=== PATIENT | female | born 1955 | race Caucasian/White ===

== ENCOUNTER 2019-08-16 19:55 | Emergency (ER) | payer MEDICARE ==
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
[2019-08-16] MEDS ORDERED: MOTRIN 600 MG ONE (21:00)
[2019-08-16] MEDS ORDERED: Cyclobenzaprine 10 MG ONE (21:00)
[2019-08-16] MEDS: Cyclobenzaprine 10 MG PO ONE (21:20)
[2019-08-16] MEDS: MOTRIN 600 MG PO ONE (21:21)
[2019-08-16 22:26] LABS: Appearance CLEAR (CLEAR); Bilirubin NEGATIVE (NEGATIVE); Blood NEGATIVE Ery/ul (0-5); Glucose NEGATIVE (NEGATIVE); Ketones NEGATIVE (NEGATIVE); Leukocyte Esterase SMALL (NEGATIVE); Nitrite NEGATIVE (NEGATIVE); Protein,Urine Dip NEGATIVE (Negative); Specific Gravity 1.005 (1.005-1.025); Urobilinogen NEGATIVE mg/dL (0-1); WBC 51-100 /HPF (0-5)
[2019-08-16 22:27] LABS: Bacteria NONE SEEN /HPF (NEGATIVE); Epithelial Cells FEW /HPF (FEW)
[2019-08-16 23:04] VITALS: BP 125/84; PULSE 66
[2019-08-17 02:00] VITALS: O2SAT 95
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
== END 2019-08-16 23:26 | disposition home or self-care (01) ==
LOC: ED 19:55
DX: M54.5 Low back pain (principal); V87.7XXA Person injured in collision between other specified motor vehicles (traffic), initial encounter; N30.00 Acute cystitis without hematuria; S30.0XXA Contusion of lower back and pelvis, initial encounter; I10 Essential (primary) hypertension
CPT/HCPCS: 72072; 72110; 81001; 87086; 99284; A9270-GY

== ENCOUNTER 2020-03-17 23:00 | Emergency (ER) | payer MEDICARE ==
--- NOTE | 2020-03-17 23:11 | ERPHSYRPT ---
- History of Present Illness Time Seen by Provider: 03/17/20 23:05 Source: patient Exam Limitations: no limitations Physician History: This is a 64-year-old white female who is not on any anticoagulation therapy, and presents to the emergency department approximately 45 minutes after suffering a skin injury to the medial aspect of her right ankle. Patient states that she had glass door propped up. The glass door had slid down and when she walked past it she suffered a scratch to the medial aspect of her right ankle. There was bleeding present. She was not sure how deep or how large the cut was and felt that she should come into the emergency department for evaluation and management Timing/Duration: today Quality: painful Severity: mild Location: extremities (Right ankle medial aspect) Associated Symptoms: denies symptoms Allergies/Adverse Reactions: levofloxacin [From Levaquin] Allergy (Intermediate, Verified 03/17/20 23:05) Itching penicillin V Allergy (Intermediate, Verified 03/17/20 23:04) Rash Unknown, has not had since a small child, Rash at that time Home Medications: Isosorbide Mononitrate [Isosorbide Mononitrate ER] 30 mg PO DAILY 08/16/19 [ History] Metoprolol Succinate 25 mg PO DAILY 08/16/19 [History] PANTOPRAZOLE 40 mg Tablet [Protonix 40MG Tablet] 40 mg PO DAILY 08/16/19 [ History] Hx Tetanus, Diphtheria Vaccination/Date Given: Yes Hx Influenza Vaccination/Date Given: No Hx Pneumococcal Vaccination/Date Given: No Travel Risk - International Travel Have you traveled outside of the country in past 3 weeks: No - Coronavirus Screening Are you exhibiting any of the following symptoms?: No Close contact with a COVID-19 positive Pt in past 14-21 Days: No - Review of Systems Constitutional: No Symptoms Eyes: No Symptoms Ears, Nose, & Throat: No Symptoms Respiratory: No Symptoms Cardiac: No Symptoms Abdominal/Gastrointestinal: No Symptoms Genitourinary Symptoms: No Symptoms Musculoskeletal: No Symptoms Skin: Other (Region to medial aspect of right ankle) Neurological: No Symptoms Psychological: No Symptoms Endocrine: No Symptoms Hematologic/Lymphatic: No Symptoms Immunological/Allergic: No Symptoms All Other Systems: Reviewed and Negative - Past Medical History Pertinent Past Medical History: Yes Neurological History: Migraines ENT History: Cataracts Cardiac History: Hypertension, Peripheral Vascular Disease, Other Respiratory History: Asthma, Sleep Apnea Endocrine Medical History: No Pertinent History Musculoskeletal History: Arthritis, Degenerative Disk Disease, Fibromyalgia GI Medical History: GERD Other Medical History: Mitral valve prolapse - Past Surgical History Past Surgical History: Yes Neuro Surgical History: No Pertinent History Cardiac: No Pertinent History Respiratory: No Pertinent History Gastrointestinal: Appendectomy Genitourinary: No Pertinent History Musculoskeletal: Other Female Surgical History: Hysterectomy Other Surgical History: T&A, cataracts, polyps off vocal chords, Carpel tunnel, Bladder suspension, Torn meniscus surgery right knee, Lipoma's removed, sinus surgery x 2 - Social History Smoking Status: Never smoker Exposure to second hand smoke: No Drug Use: none Patient Lives Alone: Yes - Nursing Vital Signs Nursing Vital Signs: Initial Vital Signs Temperature 98.2 F 03/17/20 23:00 Pulse Rate 81 03/17/20 23:00 Respiratory Rate 16 03/17/20 23:00 Blood Pressure 156/108 03/17/20 23:00 O2 Sat by Pulse Oximetry 98 03/17/20 23:00 Pain Scale Pain Intensity 3 - Physical Exam General Appearance: no apparent distress, alert, anxiety Eye Exam: PERRL/EOMI, eyes nml inspection Ears, Nose, Throat Exam: normal ENT inspection, moist mucous membranes Neck Exam: normal inspection, non-tender, supple, full range of motion Respiratory Exam: airway intact, No chest tenderness, No respiratory distress Gastrointestinal/Abdomen Exam: No tenderness Pelvic Exam: not done Rectal Exam: not done Back Exam: normal inspection, normal range of motion, No CVA tenderness, No vertebral tenderness Extremity Exam: normal range of motion, pelvis stable, tenderness ( abrasion medial aspect right ankle) Neurologic Exam: alert, oriented x 3, cooperative, blood bank coordinator II-XII nml as tested, normal mood/affect, nml cerebellar function, nml station & gait Skin Exam: abrasion (Medial aspect right ankle approximately 12 cm in length. It is superficial. There is very minimal oozing from a well approximated abrasion site. Patient is neurovascularly intact. No laceration to approximate.) Lymphatic Exam: No adenopathy SpO2 Interpretation: normal O2 Delivery: Room Air - Course Nursing assessment & vital signs reviewed: Yes Ordered Tests: Active Orders 24 hr Category Date Time Status Kelvin Bandage Application -[facility] STAT Care 03/17/20 23:25 Ordered Wound Care STAT Care 03/17/20 23:24 Ordered - Progress Progress: improved, pain not gone completely, re-examined Counseled pt/family regarding: diagnosis, need for follow-up - Departure Departure Disposition: Home Clinical Impression: Abrasion, right ankle, initial encounter Condition: Stable Critical Care Time: No Referrals: ANKUSH SHARMA MD [Primary Care Provider] - Additional Instructions: Place ice pack to medial aspect of right ankle 3 times a day for 2 days. Tylenol for pain. Keep dressing and Kelvin wrap in place until tomorrow evening (). Tomorrow evening, remove the Kelvin wrap and dressing. Wash the area thereafter once daily with soap and water. Use a hairdryer or blot dry. Apply antibiotic ointment onto the abrasion site. Cover with a nonadhering bandage and replace the Kelvin wrap. When not ambulating keep the right lower extremity elevated above the level heart for the next 48 hours. Follow-up with your primary care physician for wound check as needed.
[2020-03-17] MEDS ORDERED: BACIGUENT PACKET TP ONE (23:37)
[2020-03-17] MEDS ORDERED: BACIGUENT PACKET ONE (23:41)
[2020-03-17 23:59] VITALS: BP 135/94; PULSE 88; O2SAT 97
== END 2020-03-17 23:56 | disposition home or self-care (01) ==
LOC: ED 23:00
DX: S90.511A Abrasion, right ankle, initial encounter (principal); W25.XXXA Contact with sharp glass, initial encounter; Z79.01 Long term (current) use of anticoagulants; Z79.899 Other long term (current) drug therapy; I10 Essential (primary) hypertension; I73.9 Peripheral vascular disease, unspecified
CPT/HCPCS: 99283; A9270-GY

== ENCOUNTER 2020-07-27 16:41 | Emergency (ER) | payer MEDICARE ==
--- NOTE | 2020-07-27 17:00 | ERPHSYRPT ---
- History of Present Illness Time Seen by Provider: 07/27/20 16:50 Source: patient Exam Limitations: no limitations Patient Subjective Stated Complaint: Right Lateral Foot Pain Physician History: Patient has had lateral right foot pain for the past 5 days. Patient denies any specific mechanism of injury to the foot. Pain to the right pinky toe also as she is concerned that she may have had a fracture to it Method of Injury: unknown Occurred: days ago (five) Quality: constant Severity of Pain-Max: moderate Severity of Pain-Current: moderate Lower Extremities Pain: foot: right Modifying Factors: Improves With: rest. Worsens With: movement Associated Symptoms: No unable to bear weight, No dizzy, No fainted, No snapping sensation, No popping sensation Allergies/Adverse Reactions: levofloxacin [From Levaquin] Allergy (Intermediate, Verified 07/27/20 16:58) Itching penicillin V Allergy (Intermediate, Verified 07/27/20 16:58) Rash Unknown, has not had since a small child, Rash at that time Home Medications: Isosorbide Mononitrate [Isosorbide Mononitrate ER] 30 mg PO DAILY 08/16/19 [History] Metoprolol Succinate 25 mg PO DAILY 08/16/19 [History] PANTOPRAZOLE 40 mg Tablet [Protonix 40MG Tablet] 40 mg PO DAILY 08/16/19 [History] Hx Tetanus, Diphtheria Vaccination/Date Given: Yes Hx Influenza Vaccination/Date Given: No Hx Pneumococcal Vaccination/Date Given: No - Review of Systems Constitutional: No Fever, No Chills Respiratory: No Cough, No Dyspnea Cardiac: No Chest Pain, No Edema, No Palpitations Abdominal/Gastrointestinal: No Abdominal Pain, No Nausea, No Vomiting Genitourinary Symptoms: No Hematuria, No Flank Pain Musculoskeletal: No Back Pain, No Neck Pain, No Joint Pain Skin: No Rash, No Skin Lesions Neurological: No Dizziness, No Focal Weakness, No Parasthesia Endocrine: No Polyuria Hematologic/Lymphatic: No Easy Bleeding, No Easy Bruising All Other Systems: Reviewed and Negative - Past Medical History Pertinent Past Medical History: Yes Neurological History: Migraines ENT History: Cataracts Cardiac History: Hypertension, Peripheral Vascular Disease, Other Respiratory History: Asthma, Sleep Apnea Endocrine Medical History: No Pertinent History Musculoskeletal History: Arthritis, Degenerative Disk Disease, Fibromyalgia GI Medical History: GERD Other Medical History: Mitral valve prolapse - Past Surgical History Past Surgical History: Yes Neuro Surgical History: No Pertinent History Cardiac: No Pertinent History Respiratory: No Pertinent History Gastrointestinal: Appendectomy Genitourinary: No Pertinent History Musculoskeletal: Other Female Surgical History: Hysterectomy Other Surgical History: T&A, cataracts, polyps off vocal chords, Carpel tunnel, Bladder suspension, Torn meniscus surgery right knee, Lipoma's removed, sinus surgery x 2 - Social History Smoking Status: Never smoker Exposure to second hand smoke: No Drug Use: none Patient Lives Alone: Yes - Nursing Vital Signs Nursing Vital Signs: Initial Vital Signs Temperature 97.5 F 07/27/20 16:51 Pulse Rate 85 07/27/20 16:51 Blood Pressure 133/82 07/27/20 16:51 O2 Sat by Pulse Oximetry 97 07/27/20 16:51 Pain Scale Pain Intensity 4 - Physical Exam General Appearance: no apparent distress, alert Eyes, Ears, Nose, Throat Exam: moist mucous membranes Neck Exam: non-tender, supple Cardiovascular/Respiratory Exam: no respiratory distress, normal peripheral pulses Gastrointestinal/Abdominal Exam: non-tender, soft, No guarding Back Exam: normal inspection, No vertebral tenderness Hips Exam: bilateral: non-tender, normal inspection, normal range of motion, no evidence of injury Legs Exam: bilateral leg: non-tender, normal inspection, normal range of motion, no evidence of injury Knees Exam: bilateral knee: non-tender, normal inspection, normal range of motion, no evidence of injury Ankle Exam: bilateral ankle: non-tender, normal inspection, normal range of motion, no evidence of injury Foot Exam: right foot: bone tenderness, pain, left foot: non-tender, bilateral foot: normal inspection, normal range of motion, no evidence of injury DTR - Lower Extremities Exam: ankle (R): 2+, ankle (L): 2+ Neuro/Tendon Exam: normal sensation, normal motor functions, normal tendon functions, no evidence tendon injury, No sensory deficit Mental Status Exam: alert, oriented x 3, cooperative Skin Exam: normal color, warm, dry, No abrasion, No cyanosis SpO2 Interpretation: normal O2 Delivery: Room Air Ordered Tests: Active Orders 24 hr Category Date Time Status Splint STAT Care 07/27/20 17:34 Ordered FOOT (MINIMUM 3 VIEWS) Stat Exams 07/27/20 16:52 Taken - Progress Progress: unchanged Progress Note: 07/27/20 17:37 I reviewed with patient the initial interpretation of the right foot x-ray of it being negative. Patient declined any pain medication. We will notify the patient if x-ray interpretation is different from radiologist interpretation Counseled pt/family regarding: diagnosis, need for follow-up, rad results - Departure Departure Disposition: Home Clinical Impression: Right foot pain, Elevated blood-pressure reading without diagnosis of hypertension Contusion of lesser toe of right foot without damage to nail Qualifiers: Encounter type: initial encounter Qualified Code(s): S90.121A - Contusion of right lesser toe(s) without damage to nail, initial encounter Condition: Good Critical Care Time: No Referrals: ANKUSH SHARMA MD [Primary Care Provider] - Follow Up with PCP/3 days KIRAN STANLEY DPM [ACTIVE STAFF] - 07/28/20 (Foot and ankle surgeon for your reference) Instructions: Contusion (DC), Foot Fracture (DC) Additional Instructions: Your x-rays were read as negative today. Follow-up with your primary care physician or backhoe operator for follow-up to follow formal interpretation of the x- rays by radiology and to continue evaluation of your pain
[2020-07-27 18:01] VITALS: BP 131/80; PULSE 78; O2SAT 98
--- NOTE | 2020-07-28 08:42 | XRAY ---
Indication: Fifth digit pain following injury 5 days ago. Comparison: None 3 portable nonweightbearing views right foot demonstrates tiny plantar heel spur. No other bony, articular, or soft tissue abnormalities.
== END 2020-07-27 18:02 | disposition home or self-care (01) ==
LOC: ED 16:41
DX: R03.0 Elevated blood-pressure reading, without diagnosis of hypertension (principal); S90.121A Contusion of right lesser toe(s) without damage to nail, initial encounter; M79.671 Pain in right foot; I10 Essential (primary) hypertension; I73.9 Peripheral vascular disease, unspecified; G47.30 Sleep apnea, unspecified; F51.9 Sleep disorder not due to a substance or known physiological condition, unspecified
CPT/HCPCS: 73630; 99283

== ENCOUNTER 2024-08-23 06:16 | Day surgery (SDC) | payer MEDICARE ==
[2024-08-23 06:36] VITALS: TEMP 97.9
[2024-08-23] MEDS: Lactated Ringers 1,000 ML IV SCH (06:46)
[2024-08-23] MEDS: TRANEXAMIC 1,000 MG/100ML-NACL 1,000 MG/100 ML PIGGYBACK IV ONE (06:52)
[2024-08-23] MEDS ORDERED: CEFAZOLIN 2 GM/100 ML NaCl 2 GM/100 ML IVPB IV ONE (07:25)
[2024-08-23] MEDS: CEFAZOLIN 2 GM/100 ML NaCl 2 GM/100 ML IVPB IV SCH (07:28)
[2024-08-23] MEDS ORDERED: Lactated Ringers 1,000 ML IV ONE ×2 (07:35→08:17)
[2024-08-23] MEDS ORDERED: Versed 2 MG/2 ML Injection ONE (07:44)
[2024-08-23] MEDS ORDERED: Naropin 0.5% 30 ML VIAL*** 123.125 MG, TORAdol 30 mg Injection*** 15 MG, Epinephrine Pr... IV ONE (08:00)
[2024-08-23] MEDS ORDERED: Zofran 4 MG/2 ML VIAL ONE (08:45)
[2024-08-23] MEDS ORDERED: Naropin 0.5% 30 ML VIAL ONE (08:45)
[2024-08-23] MEDS ORDERED: DIPRIVAN 200 MG/20 ML IV ONE (08:45)
[2024-08-23] MEDS ORDERED: TRANEXAMIC 1,000 MG/100ML-NACL 1,000 MG/100 ML PIGGYBACK IV ONE (08:47)
[2024-08-23] MEDS: Lactated Ringers 1,000 ML IV ONE (09:23)
[2024-08-23] MEDS ORDERED: SUBLIMAZE 100 MCG/2 ML ONE ×2 (09:36→10:37)
[2024-08-23] MEDS ORDERED: Hydromorphone 1 mg/ml Injection ONE (10:19)
--- NOTE | 2024-08-23 10:35 | XRAY ---
Indication: Follow-up surgery. Comparison: June 26, 2024 AP/crosstable lateral right knee demonstrates interval total knee arthroplasty with intact articulation/prosthesis. Also new postoperative soft tissue swelling, soft tissue emphysema, and anterior cutaneous carissa. Again osteopenia. No other bony, articular, or soft tissue abnormalities.
[2024-08-23] MEDS ORDERED: Oxy-IR 5 MG PO PRN (12:06)
[2024-08-23] MEDS ORDERED: Zofran 4 MG/2 ML VIAL IV PRN (12:06)
[2024-08-23] MEDS: Imdur 30 MG PO SCH (13:58)
[2024-08-23] MEDS: Prozac 20 MG PO SCH (13:58)
[2024-08-23] MEDS: Protonix 40MG Tablet PO SCH (13:58)
[2024-08-23] MEDS: Toprol-Xl 25MG Tablets PO SCH (13:59)
[2024-08-23] MEDS: Sodium Chloride 0.9% 1000 ML 1,000 ML IV SCH (13:59)
[2024-08-23 14:11] VITALS: BP 109/69; PULSE 63; O2SAT 94
[2024-08-23 14:40] VITALS: RESP 18
[2024-08-24] MEDS ORDERED: Vitamin C 500 MG PO SCH (10:00)
[2024-08-24] MEDS ORDERED: Vitamin B-12 500 MCG PO SCH (10:00)
[2024-08-24] MEDS ORDERED: PROZAC 10 MG PO SCH (10:00)
--- NOTE | 2024-08-25 18:52 | OP ---
SURGERY DATE/TIME: 08/23/2024 [id number] DIAGNOSIS: Right knee degenerative joint disease. PROCEDURE: Right total knee replacement. SURGEON: Estrada Sutherland MD DRINK BOX MECHANIC: Anay Meek ANESTHESIA: Spinal, plus peripheral block. FINDINGS: Severe medial compartment degenerative joint disease. IMPLANTS: 1) Isabell Persona cruciate-retaining femur, size 7. 2) Right size D tibial baseplate. 3) A 10 mm noncongruent polyethylene. 4) Size 29 patella, which is 8 mm thick. ESTIMATED BLOOD LOSS: 100 mL. FLUIDS: Per the anesthesia records. SPECIMENS: None. DRAINS: None. COMPLICATIONS: None. INDICATIONS: Patient is a 69-year-old white female with painful right knee refractory to conservative care. She wishes to have this replaced for pain relief. DESCRIPTION OF PROCEDURE AND FINDINGS: Patient was seen in the holding room. We identified the right knee as correct. This was initialed by me. She had 2 g of Kefzol and 1000 mg tranexamic acid. She had a nerve block. She was taken He was taken to the OR, where he had spinal anesthesia and was positioned supine. Had sterile and prep drape of her right lower extremity. Had a time-out performed by me. Had tourniquet inflated around the upper thigh to 250 mmHg. Total tourniquet time was 39 minutes. A midline incision was made from just medial to the tibial tubercle to about 6 mm above the superior pole of the patella. A medial parapatellar approach was made, splitting the quadriceps 10% and 90%. Patella was everted, and the fat pad was excised about 50%. The patella was measured at 20 mm thickness. It was then reamed down to 12 mm thickness with a Isabell reamer and drill was used to drill out the 3 lugs on the patellar button. The drill was drilled down the center of the tibial and femoral canals. The guide quang on the femur was set at 5 degrees of valgus for a right knee with a 10 mm distal cut. The cut was made and then the tibia was compared with the intramedullary quang with a 7-degree posterior slope, taking 2 mm off the medial side in neutral varus. The ECL was protected during this cut. The femur was then sized using the anterior referencing size for size 7 femur. The anterior and posterior cuts, and anterior chamfer and posterior chamfer cuts were made off the block. The menisci were then excised. The flexion and extension gaps were checked and were equal for a 10 mm spacer. The tibial baseplate was pinned in place in line with the medial third of the tibial tubercle. The femoral component trial was applied, and then the 10 mm spacer was placed. Button was placed on the patella. The knee could flex from about 0 to 115 degrees of flexion. Patella tracking midline. Knee was stable to varus and valgus on flexion and extension. The lug nuts were drilled out of the femur, and then the tibial was drilled and punched out for the keel. A bone plug was made for the femur. The knee was thoroughly irrigated with a pulse lavage saline. Then 30 mL of 0.5% ropivacaine was mixed with 30 mL of saline, and this was injected circumferentially around the capsule. Two batches of Isabell cement were mixed under vacuum conditions and placed in a cement gun. This was placed on the bony surfaces and on the components. The tibial component was applied first, and the femoral component was applied. The knee was put in full extension for the trial 10 mm spacer. The patella button was held with a clamp and the tourniquet was released. Hemostasis was attained with electrocautery. When all cement had hardened, excess cement was trimmed off with an osteotome. The knee was thoroughly irrigated, and the true tray was locked into place with the same range of motion, stability, and patella tracking as mentioned before. Irrigation was done with saline. The medial parapatellar approach was closed with #2 Ethibond interrupted suture, and then a running #1 Stratafix suture. The subcutaneous was closed with 2-0 Vicryl and the skin with carissa. Sterile dressing with Aquacel was applied. Plan is for patient to be weightbearing as tolerated. She will go home today if she does well with therapy. She will have aspirin for 3 weeks for DVT prophylaxis, have Keflex for 5 days, and Percocet for pain. Return in 10 to 12 days for staple removal. She may remove the dressing and shower postop day 5.
== END 2024-08-23 18:45 | disposition home or self-care (01) ==
LOC: SDC 06:16 → MED SURG 11:12 → SDC 18:45
PROVIDERS: ATTEND Orthopaedic Surgery
DX: M17.11 Unilateral primary osteoarthritis, right knee (principal)
CPT/HCPCS: 27447; 73560; J0690; J1171; J2250; J2405; J2704; J2795; J3010; A9270-GY